=== PATIENT | male | born 1975 | race American Indian/Alaskan Native ===

== ENCOUNTER 2020-06-30 19:21 | Emergency (ER) | payer SELFPAY ==
[2020-06-30] MEDS ORDERED: ADENOSINE 6 MG/2 ML INJ IV ONE (19:38)
--- NOTE | 2020-06-30 19:41 | Emergency Department Report ---
ED Palpitations HPI - General Chief Complaint: Arrhythmia/Palpitations Stated Complaint: RAPID HEART RATE;H/O OF SVT Time Seen by Provider: 06/30/20 19:37 Source: patient Mode of arrival: Ambulatory Limitations: No Limitations - History of Present Illness Initial Comments: Patient is 44 years old male with history of paroxysmal SVT. Patient presented to the ER complaining of sudden onset of palpitation while he was resting. Patient is complaining of chest pain and shortness of breath. 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 Patient stated that he usually get adenosine 6 mg and sometimes up to 12 mg usually convert him. Patient denied any fever or chills. No drug abuse. MD Complaint: rapid heart beat, "heart racing", palpitations -: Sudden Context: occured during rest Arrythmia History: SVT Associated Symptoms: chest pain, shortness of breath - Related Data Allergies Allergy/AdvReac Type Severity Reaction Status Date / Time No Known Allergies Allergy Unverified 06/30/20 19:28 ED Review of Systems ROS: Stated complaint: RAPID HEART RATE;H/O OF SVT Other details as noted in HPI Comment: All other systems reviewed and negative Constitutional: denies: chills, fever Respiratory: shortness of breath. denies: cough Cardiovascular: chest pain, palpitations Gastrointestinal: denies: abdominal pain, nausea Musculoskeletal: denies: back pain Neurological: denies: headache, weakness ED Past Medical Hx - Past Medical History Previous Medical History?: Yes Additional medical history: SVT - Social History Smoking Status: Current Every Day Smoker ED Physical Exam - General Limitations: No Limitations General appearance: alert, anxious - Head Head exam: Present: atraumatic, normocephalic, normal inspection - Eye Eye exam: Present: normal appearance, PERRL - ENT ENT exam: Present: normal exam, normal orophraynx, mucous membranes moist - Neck Neck exam: Present: normal inspection. Absent: tenderness, meningismus - Respiratory Respiratory exam: Present: normal lung sounds bilaterally - Cardiovascular Cardiovascular Exam: Present: tachycardia - GI/Abdominal GI/Abdominal exam: Present: soft, normal bowel sounds. Absent: distended, tenderness, guarding, rebound, rigid - Extremities Exam Extremities exam: Present: normal inspection, full ROM, normal capillary refill. Absent: tenderness - Back Exam Back exam: Present: normal inspection, full ROM. Absent: CVA tenderness (R), CVA tenderness (L) - Neurological Exam Neurological exam: Present: alert, oriented X3, CN II-XII intact - Psychiatric Psychiatric exam: Present: normal mood - Skin Skin exam: Present: warm, intact, normal color ED Course Vital Signs 06/30/20 06/30/20 06/30/20 19:27 19:40 19:45 Temperature 98.6 F Pulse Rate 211 H 183 H 197 H Respiratory 18 15 24 Rate Blood Pressure 135/104 129/59 O2 Sat by Pulse 95 98 Oximetry 06/30/20 06/30/20 06/30/20 19:47 20:00 20:01 Temperature Pulse Rate 189 H 84 Respiratory 16 13 Rate Blood Pressure 131/74 O2 Sat by Pulse 99 Oximetry ED Medical Decision Making - EKG Data -: EKG Interpreted by Me Rate: tachycardia - EKG Data 06/30/20 20:56 SVT with a heart rate of 188. - Medical Decision Making Patient is 44 years old male with history of paroxysmal SVT. Patient presented to the ER complaining of sudden onset of palpitation while he was resting. Patient is complaining of chest pain and shortness of breath. 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 Patient stated that he usually get adenosine 6 mg and sometimes up to 12 mg usually convert him. Patient denied any fever or chills. No drug abuse. EKG showed SVT with a heart rate of 188. Patient converted with 6 mg of adenosine. Patient stated that he is feeling much better. Patient refused blood work and x-ray. Patient stated that he wanted to sign AMA. I discussed with the patient thoroughly the need to stay and be observed more and admitted to the hospital to be seen by heavy equipment operator apprentice for possible ablation. Patient insisted that he want to sign AGAINST MEDICAL ADVICE. Patient is alert, oriented x3 no acute distress. Patient is able to make sound decision. Patient advised to return to the ER if he develop any new symptoms. Patient also advised to follow-up with his primary doctor soon as possible for referral to heavy equipment operator apprentice and further management. Critical Care Time: Yes Critical care time in (mins) excluding proc time.: 30 Critical care attestation.: If time is entered above; I have spent that time in minutes in the direct care of this critically ill patient, excluding procedure time. ED Disposition Clinical Impression: SVT (supraventricular tachycardia) Disposition: 07 LEFT AGAINST MED ADVICE Is pt being admited?: No Condition: Stable Instructions: Supraventricular Tachycardia, Adult Referrals: [facility] [Other] - 3-5 Days
[2020-06-30 22:30] VITALS: BP 132/79
--- NOTE | 2020-07-01 11:15 | Electrocardiograph Report ---
[facility] Test Date: 2020-06-30 Test Time: 19:30:42 Pat Name: BRAEDEN HERNANDEZ Department: Room: Gender: M [employer]: MORENITA : 1975 Requested By: FADIA LANIER Order Number: [id number] Reading MD: Pedro Aquino Measurements Intervals [place] Rate: 188 P: 0 NE: QRS: 73 QRSD: 84 T: 1 QT: 275 QTc: 486 Interpretive Statements Supraventricular tachycardia ST depression, probably rate related No previous ECG available for comparison Electronically Signed On 07-01-2020 11:14:58 EDT by Pedro Aquino
== END 2020-06-30 21:50 | disposition left against medical advice (07) ==
LOC: ED 19:21
DX: I47.1 Supraventricular tachycardia (principal); F17.200 Nicotine dependence, unspecified, uncomplicated
CPT/HCPCS: 93005; 96374; 99282; J0153